=== PATIENT | female | born 1960 | race Caucasian/White ===

== ENCOUNTER 2016-07-09 15:50 | Inpatient (IN) | payer BC, OTHER ==
[~2016-07-09] VITALS: Ht 170.2 cm; Wt 112.7 kg
[~2016-07-09 15:50] MED LIST: ALPR.25T PO; CRS350T PO; CYCL10TA9 PO; DULO60CA6 PO; DZPM2T PO; HYDR1TAB66 PO; HYDR1TAB71 PO; LOPE2CAP PO; NABU750T PO; NABUMETONE PO; OMEP20TA2 PO; ONDA8TAB6 PO
--- OUTSIDE RECORDS SUMMARY | 2016-07-09 16:20 | XMS REPORT | Clinical Summary ---
Author Author augusta shell DO, [place] [address] Phone Unavailable Allergies, Adverse Reactions, Alerts Allergy Name Reaction Description Start Date Severity Status Provider DECADRON Critical Active Angie Velazquez IV COMPAZINE Critical Active Angie Velazquez Conditions or Problems Problem Name Problem Code Onset Date Status Entry Date Provider Comment Standard Description Annotate FIBROMYALGIA 729.1 Active Angie Velazquez UNSPECIFIED MYALGIA AND MYOSITIS INSOMNIA 780.52 Active Angie Velazquez INSOMNIA, UNSPECIFIED MIGRAINE VARIANT 346.20 Active Angie Velazquez VARIANTS OF MIGRAINE, NOT ELSEWHERE CLASSIFIED, WITHOUT MENTION OF INTRACTABLE MIGRAINE WITHOUT MENTION OF STATUS MIGRAINOSUS DEPRESSION 311 Active Angie Velazquez DEPRESSIVE DISORDER, NOT ELSEWHERE CLASSIFIED WEIGHT GAIN, ABNORMAL 783.1 Active Angie Velazquez ABNORMAL WEIGHT GAIN LYMPHEDEMA, RIGHT ARM 457.1 Active Anige Velazquez OTHER NONINFECTIOUS LYMPHEDEMA HEALTH SCREENING V70.0 Active Angie Velazquez ROUTINE GENERAL MEDICAL EXAMINATION AT [facility] Medication List Medication Instructions Start Date Stop Date Generic Name NDC Status Provider Patient Instruction RELAFEN 500 MG TABS 1 po BID NABUMETONE Active Az Wormandrés FLEXERIL 10 MG TABS 1 po at HS CYCLOBENZAPRINE HCL Active Az Morrow CYMBALTA 60 MG CPEP 1 PO daily DULOXETINE HCL 34410363459 Active Angie Velazquez VITAMIN D 2000 UNIT TABS 1 PO Daily CHOLECALCIFEROL 46470913482 Active Angie Velazquez OMEPRAZOLE 20 MG CPDR 1 PO daily in am OMEPRAZOLE 52507516621 Active Angie Velazquez VALIUM 2 MG TAB 1 PO TID prn headache DIAZEPAM 56690457682 Active Az Morrow XANAX 0.25 MG TABS 1 PO BID ALPRAZOLAM 94318334316 Active Elida Chan ASPIRIN 325 MG TAB 1 PO daily ASPIRIN 72265014945 Active Angie Velazquez HYDROCODONE-ACETAMINOPHEN 7.5-325 MG TABS 1 PO BID prn HYDROCODONE- ACETAMINOPHEN 62217222888 Active Angie Egan Velazquez Vital Signs Date Name Value Unit Range Description blood pressure, diastolic 88 mm[Hg] BP longo blood pressure, systolic 132 mm[Hg] BP sys pulse rate E&M 78 /min Heart rate respiratory rate E&M 14 /min Respiratory rate weight E&M 242 [lb_av] Weight Measured blood pressure, diastolic 60 mm[Hg] BP longo blood pressure, systolic 130 mm[Hg] BP sys pulse rate E&M 60 /min Heart rate respiratory rate E&M 14 /min Respiratory rate weight E&M 225 [lb_av] Weight Measured blood pressure, diastolic 90 mm[Hg] BP longo blood pressure, systolic 136 mm[Hg] BP sys pulse rate E&M 60 /min Heart rate respiratory rate E&M 14 /min Respiratory rate temperature E&M 98.6 [degF] Bdy temp weight E&M 232 [lb_av] Weight Measured
[2016-07-09 16:30] VITALS: BP 153/82
[2016-07-09] MEDS ORDERED: FLUT1DIS28 IH (16:55)
[2016-07-09] MEDS ORDERED: HYDR115S2 PO (16:55)
[2016-07-09] MEDS ORDERED: PRD10T PO (16:55)
[2016-07-09] MEDS ORDERED: RT-ALBUINH IH (16:55)
[2016-07-09] MEDS ORDERED: CEFD300C3 PO (16:55)
[2016-07-09] MEDS ORDERED: CETI10TA17 PO (17:05)
[2016-07-09] MEDS ORDERED: FLUT9.9S NS (17:05)
[2016-07-09] MEDS ORDERED: PREN-94 PO (17:05)
[2016-07-09 17:23] LABS: BASOPHILS % (AUTO) 0 % (0-10); EOSINOPHILS % (AUTO) 0 % (0-10); LYMPHOCYTES # (AUTO) 1.7 X 10^3 (1.0-4.0); LYMPHOCYTES % (AUTO) 16 % (12-44); MEAN CORPUSCULAR HEMOGLOBIN 28 PG (25-34); MEAN CORPUSCULAR HGB CONC 33 G/DL (32-36); MEAN CORPUSCULAR VOLUME 87 FL (80-99); MEAN PLATELET VOLUME 9.2 FL (7.4-10.4); MONOCYTES # (AUTO) 0.4 X 10^3 (0.0-1.0); MONOCYTES % (AUTO) 4 % (0-12); NEUTROPHILS # (AUTO) 8.6 X 10^3 (1.8-7.8); NEUTROPHILS % (AUTO) 80 % (42-75); PLATELET COUNT 232 10^3/uL (130-400); RED BLOOD COUNT 5.04 10^6/uL (4.35-5.85); WHITE BLOOD COUNT 10.8 10^3/uL (4.3-11.0)
[2016-07-09 17:41] LABS: ALANINE AMINOTRANSFERASE 34 U/L (0-55); ALBUMIN 4.4 G/DL (3.2-4.5); ANION GAP 11 MMOL/L (5-14); ASPARTATE AMINO TRANSFERASE 25 U/L (5-34); BILIRUBIN,TOTAL 0.3 MG/DL (0.1-1.0); BLOOD UREA NITROGEN 16 MG/DL (7-18); BUN/CREATININE RATIO 22; CARBON DIOXIDE 24 MMOL/L (21-32); CHLORIDE 103 MMOL/L (98-107); CREATININE SERUM 0.72 MG/DL (0.60-1.30); GFR ESTIMATED > 60; GLUCOSE 122 MG/DL (70-105); POTASSIUM 3.9 MMOL/L (3.6-5.0); SODIUM 138 MMOL/L (135-145); TOTAL PROTEIN 7.6 G/DL (6.4-8.2)
[2016-07-09] MEDS: RT-BUDESONIDE NEBS 0.5 MG/2ML (PULMICORT) AMP INH SCH ×2 (18:00→18:01)
[2016-07-09] MEDS: RT-ALBUTEROL/IPRATROPIUM 3 ML (DUONEB) VIAL INH SCH ×2 (18:00→22:18)
--- NOTE | 2016-07-09 18:00 | Diagnostic Imaging Report ---
INDICATION: Coughing, wheezing. FINDINGS: There is some prominence of the perihilar interstitial markings and thickening of the central airways. There is a new finding. This can be seen in viral pneumonitis or reactive airway disease, asthma exacerbation or bronchitis. There was however no alveolar consolidation to suggest a david pneumonia and no effusion or pneumothorax. The lung volumes are symmetric and unremarkable. IMPRESSION: New perihilar interstitial thickening with normal lung volumes. No acute pleural pathology or alveolar infiltrate. Dictated by: Dictated on workstation # [id number]
[2016-07-09] MEDS: LEVOFLOXACIN 750 MG/150 ML IV 150 ML IV SCH (18:55)
[2016-07-09 20:00] VITALS: BP 146/70
[2016-07-09] MEDS ORDERED: CEFEPIME HCL 2 GM (MAXIPIME) VIAL ONE (20:09)
[2016-07-09] MEDS ORDERED: NORMAL SALINE (BAXTER MINI) 50 ML IV ONE (20:11)
[2016-07-09] MEDS: CEFEPIME INJECTION 2,000 MG in NORMAL SALINE (BAXTER MINI) 50 ML IV SCH (20:28)
[2016-07-09] MEDS: methylPREDNISolone 40 MG/ML (Solu-MEDROL) VIAL IV SCH ×2 (20:28→20:35)
[2016-07-09] MEDS: guaiFENesin/CODEINE (ROBITUSSIN AC) 10ML UDC PO PRN (21:06)
[2016-07-09] MEDS: IBUPROFEN TABLET 200 MG TAB PO PRN (21:07)
[2016-07-09 23:55] VITALS: BP 161/77
[2016-07-10] MEDS: fentaNYL INJECTION 100 MCG/2 ML AMP IVP PRN ×3 (00:02→11:35)
[2016-07-10] MEDS: methylPREDNISolone 40 MG/ML (Solu-MEDROL) VIAL IV SCH ×4 (00:54→18:10)
[2016-07-10] MEDS: guaiFENesin/CODEINE (ROBITUSSIN AC) 10ML UDC PO PRN (01:02)
[2016-07-10 01:20] VITALS: BP 149/70
[2016-07-10] MEDS: RT-ALBUTEROL/IPRATROPIUM 3 ML (DUONEB) VIAL INH SCH ×6 (02:05→23:30)
[2016-07-10 04:00] VITALS: BP 141/72
[2016-07-10] MEDS: IBUPROFEN TABLET 200 MG TAB PO PRN (05:20)
[2016-07-10] MEDS: RT-BUDESONIDE NEBS 0.5 MG/2ML (PULMICORT) AMP INH SCH ×2 (06:39→19:08)
[2016-07-10 08:00] VITALS: BP 155/65
[2016-07-10] MEDS ORDERED: NORMAL SALINE (BAXTER MINI) 50 ML IV ONE (09:47)
[2016-07-10] MEDS ORDERED: CEFEPIME HCL 2 GM (MAXIPIME) VIAL ONE (09:47)
[2016-07-10] MEDS: CEFEPIME INJECTION 2,000 MG in NORMAL SALINE (BAXTER MINI) 50 ML IV SCH (10:28)
--- NOTE | 2016-07-10 10:55 | Pulmonary Consultation ---
History of Present Illness History of Present Illness Date of Consultation 07/10/16 10:53 Date of Admission History of Present Illness 56yo with hx of asthma presented to secondary to progressive SOB and wheezing. She failed out pt tx with omnicef and steroids. I am consulted for pulmonary mangemtn. Allergies and Home Medications Allergies Coded Allergies: levofloxacin (Verified Allergy, Intermediate, RASH, 07/10/16) PALPITATIONS dexamethasone (Unverified Allergy, Unknown, PT HAS RECEIVED SOLU-MEDROL, 07/10/16) dexamethasone sod phosphate (Unverified Allergy, Unknown, 03/11/11) prochlorperazine edisylate (Unverified Allergy, Unknown, 03/11/11) prochlorperazine maleate (Unverified Allergy, Unknown, 03/11/11) Home Medications Albuterol Sulfate 8.5 Gm Hfa.aer.ad 2 PUFF IH Q4H PRN PRN SHORTNESS OF BREATH ( Reported) Cefdinir 300 Mg Capsule 7Days 300 MG PO BID (Reported) FILLED 07/07/16 #14 FOR A 7 DAY THERAPY Cetirizine HCl 10 Mg Tablet 10 MG PO HS (Reported) Fluticasone Propionate 9.9 Ml Custer.susp 2 SPRAYS NS BID (Reported) Fluticasone/Salmeterol 1 Each Blst.w.dev 30Days 1 EACH IH BID Prescribed by: HALLIE FRYE on 07/13/16 1024 Hydrocodone/Chlorphen P-Stirex 480 Ml Angie.er.12h 5 ML PO QID PRN PRN COUGH ( Reported) Ipratropium/Albuterol Sulfate 3 Ml Ampul.neb #90 3 ML IH TID Prescribed by: AHLLIE FRYE on 07/13/16 1105 Prednisone 10 Mg Tab PO UD (Reported) FILLED 07/07/16 #42 A 12 DAY TAPER BEGINNING WITH 6 TABS PO ONCE DAILY; DECREASE BY 1 TAB EVERY OTHER DAY UNTIL GONE Vits #90/Iron Fum/FA 1 Each Tablet 1 TAB PO HS (Reported) Past Ddiihze-Azmnrj-Jbegnz Hx Patient Social History Alcohol Use: Denies Use Recreational Drug Use: No Recent Foreign Travel: No Contact w/Someone Who Travel: No Recent Infectious Disease Expo: No Recent Hopitalizations: No Physical Abuse Screen: No Sexual Abuse: No Immunizations Up To Date Tetanus Booster (TDap): Less than 5yrs Date of Pneumonia Vaccine: Apr 25, 2016 Date of Influenza Vaccine: Apr 25, 2016 Seasonal Allergies Seasonal Allergies: Yes Surgeries HX Surgeries: Yes Respiratory Hx Respiratory Disorders: Yes Respiratory Disorders: Asthma, Chronic Bronchitis Cardiovascular Hx Cardiac Disorders: Yes Neurological Hx Neurological Disorders: Yes Reproductive System Hx Reproductive Disorders: Yes (HYSTO) Genitourinary Hx Genitourinary Disorders: No Gastrointestinal Hx Gastrointestinal Disorders: No Musculoskeletal Hx Musculoskeletal Disorders: Yes Musculoskeletal Disorders: Fibromyalgia Endocrine Hx Endocrine Disorders: No Endocrine Disorders: Lupus HEENT HX ENT Disorders: Yes Psychosocial Hx Psychiatric Problems: No Integumentary HX Skin/Integumentary Disorder: No Blood Transfusions Hx Blood Disorders: No Adverse Reaction to a Blood Tr: No Review of Systems Constitutional: : Malaise: Weakness Eyes: No: Conjunctivae inflammation, Eyelid inflammation, Other, Pain, Redness , Vision change ENT: No: Ear discharge, Ear pain, Mouth pain, Mouth swelling, Nose congestion, Nose discharge, Nose pain, Other, Throat pain, Throat swelling Respiratory: : SOB with excertion: Shortness of breath: Wheezing Cardiovascular: : OrthopneaNo: Chest Pain, Palpitations Gastrointestinal: No: Nausea, Vomiting Genitourinary: No Dysuria Neurological: : Weakness Exam Exam Vital Signs Date Time Temp Pulse Resp B/P Pulse Ox O2 Delivery O2 Flow Rate FiO2 07/10/16 10:28 93 Room Air 07/10/16 07:00 82 07/10/16 06:39 92 Room Air 07/10/16 04:00 97.7 75 18 141/72 93 Room Air 07/10/16 02:05 95 Room Air 07/10/16 01:50 Room Air 07/10/16 01:20 98.4 70 17 149/70 92 Room Air 07/10/16 01:00 102 07/09/16 23:55 98.0 90 18 161/77 92 Room Air 07/09/16 22:19 92 Room Air 07/09/16 20:22 95 Room Air 07/09/16 20:00 95 Room Air 07/09/16 20:00 98.8 80 20 146/70 95 Room Air 07/09/16 19:00 87 07/09/16 18:01 93 Room Air 07/09/16 16:30 99.5 90 20 153/82 95 Room Air I & O 07/10/16 07:00 Intake Total 600 ml Balance 600 ml General Appearance: No Apparent Distress WD/WN HEENT: PERRL/EOMI Normal ENT Inspection Pharynx Normal Neck: Normal Inspection Non Tender Supple Respiratory: Chest Non Tender No Accessory Muscle Use No Respiratory Distress Decreased Breath Sounds Wheezing Cardiovascular: Regular Rate, Rhythm No Edema No Gallop Gastrointestinal: normal bowel sounds non tender soft no organomegaly Neurologic/Psychiatric: Alert Oriented x3 Skin: Normal Color Warm/Dry Results Lab Laboratory Tests 07/09/16 17:12 Assessment/Plan Assessment/Plan Dyspnea failed out pt treatment -IV Abx -solumedrol change to 40 IV Q6 obesity Clinical Quality Measures DVT/VTE Risk/Contraindication: Risk Factor Score Per Nursin RFS Level Per Nursing on Admit: 4+=Very High FERNANDO PÉREZ DO Jul 10, 2016 10:55
--- NOTE | 2016-07-10 11:04 | History & Physical-Hospitalist ---
HPI History of Present Illness: HPI/Chief Complaint CC: SOB HPI: This is 56WyoWF pt of mine with Hx of severe URI episodes that trigger asthma episodes that presented to my clinic yesterday as an urgent appointment due to SOB. She was seen in clinic on Wednesday, found to be wheezing, so she was placed on Omnicef and steroids of 60mg daily but she became worse and agreed for admission. Chart Review: CXR reveals no pneumonia but perihilar interstitial thickening CBC and CMP normal magnetic tape winder: Dr. Velazquez informs RN that pt will receive nebulizer prescription. Patient Interview: Pt states that she can breathe better, but is coughing now. Pt states that she is tired. Physical exam reveals improved lung sounds. Pt denies BMs, and has little appetite. Pt does not take Singulair at home. Pt does not have nebulizer at home. Scribed by Vishal Li under the direct supervision of Dr. Velazquez. Source: patient Date Seen 07/10/16 Attending Physician Angie Velazquez DO PCP Angie Velazquez DO Referring Physician Date of Admission Jul 09, 2016 at 16:16 Home Medications & Allergies Home Medications Reviewed patient Home Medication Reconciliation Form Allergies Coded Allergies: dexamethasone (Unverified Allergy, Unknown, PT HAS RECEIVED SOLU-MEDROL, 07/10/16) dexamethasone sod phosphate (Unverified Allergy, Unknown, 03/11/11) prochlorperazine edisylate (Unverified Allergy, Unknown, 03/11/11) prochlorperazine maleate (Unverified Allergy, Unknown, 03/11/11) Past Nqippzk-Yypkap-Mlorzu Hx Patient Social History Marrital Status: 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[employer]) Alcohol Use: Denies Use Recreational Drug Use: No Smoking Status: Never a Smoker Physical Abuse Screen: No Sexual Abuse: No Recent Foreign Travel: No Contact w/other who traveled: No Recent Hopitalizations: No Recent Infectious Disease Expo: No Immunizations Up To Date Tetanus Booster (TDap): Less than 5yrs Date of Pneumonia Vaccine: Apr 25, 2016 Date of Influenza Vaccine: Apr 25, 2016 Seasonal Allergies Seasonal Allergies: Yes Surgeries HX Surgeries: Yes Surgeries: Gallbladder, Tonsillectomy Respiratory Hx Respiratory Disorders: Yes Respiratory Disorders: Asthma Cardiovascular Hx Cardiovascular Disorders: Yes Cardiac Disorders: Chronic Edema/Swelling, High Cholesterol Neurological Hx Neurological Disorders: Yes Neurological Disorders: Headaches /Migraines Reproductive System Hx Reproductive Disorders: Yes (HYSTO) Genitourinary Hx Genitourinary Disorders: No Gastrointestinal Hx Gastrointestinal Disorders: No Musculoskeletal Hx Musculoskeletal Disorders: Yes Musculoskeletal Disorders: Fibromyalgia Endocrine Hx Endocrine Disorders: No Endocrine Disorders: Lupus HEENT HX ENT Disorders: Yes Psychosocial Hx Psychiatric Problems: No Integumentary HX Skin/Integumentary Disorder: No Blood Transfusions Hx Blood Disorders: No Adverse Reaction to a Blood Tr: No Review of Systems Constitutional: see HPI chills dizziness fever malaise weakness EENTM: no symptoms reported Respiratory: cough short of breath wheezing Cardiovascular: no symptoms reported Gastrointestinal: no symptoms reported Genitourinary: no symptoms reported Musculoskeletal: no symptoms reported Skin: no symptoms reported Psychiatric/Neurological: No Symptoms Reported All Other Systems Reviewed Negative Unless Noted: Yes Physical Exam Physical Exam Vital Signs Vital Sign - Last 12Hours 07/09/16 16:30 Temp 99.5 Pulse 90 Resp 20 B/P 153/82 Pulse Ox 95 O2 Delivery Room Air Capillary Refill : General Appearance: No Apparent Distress WD/WN Other (a T) Eyes: Bilateral Eye Normal Inspection, Bilateral Eye PERRL HEENT: PERRL/EOMI Normal ENT Inspection Pharynx Normal Neck: Full Range of Motion Normal Inspection Non Tender Supple Carotid Bruit Respiratory: Chest Non Tender Normal Breath Sounds No Accessory Muscle Use No Respiratory Distress Crackles Decreased Breath Sounds Rales Wheezing Cardiovascular: Regular Rate, Rhythm No Edema No Gallop No JVD No Murmur Normal Peripheral Pulses Gastrointestinal: Normal Bowel Sounds No Organomegaly No Pulsatile Mass Non Tender Soft Back: Normal Inspection No CVA Tenderness No Vertebral Tenderness Extremity: Normal Capillary Refill Normal Inspection Normal Range of Motion Non Tender No Calf Tenderness No Pedal Edema Neurologic/Psychiatric: Alert Oriented x3 No Motor/Sensory Deficits Normal Mood/Affect Skin: Normal Color Warm/Dry Lymphatic: No Adenopathy Results Results/Procedures Lab Laboratory Tests 07/09/16 17:12 Assessment/Plan Admission Diagnosis Assessment: Severe asthma exacerbation due to pneumonitis failed PO antibiotics and steroids Chronic pain syndrome Fibromyalgia Allergic rhinitis Hx of right upper extremity thrombophlebitis following arm injury Assessment and Plan Plan: Consult with Dr. Lang Prescription for nebulizer has been entered for her daughter to apple picker today at [facility] in preparation for discharge over the weekend Empiric antibiotics for pneumonitis on chest x-ray Monitor labs SCD's Reconcile all home meds Clinical Quality Measures DVT/VTE Risk/Contraindication: Risk Factor Score Per Nursin RFS Level Per Nursing on Admit: 4+=Very High ANGIE VELAZQUEZ DO Jul 10, 2016 11:04
[2016-07-10] MEDS: HYDROCODONE/CHLOR 10MG/5 ML (TUSSIONEX SUSP) 5ML UDC PO PRN (11:34)
[2016-07-10 12:00] VITALS: BP 150/68
[2016-07-10 16:00] VITALS: BP 174/69
[2016-07-10] MEDS: LEVOFLOXACIN 750 MG/150 ML IV 150 ML IV SCH (18:11)
[2016-07-10 19:33] VITALS: BP 172/62
[2016-07-10] MEDS ORDERED: diphenhydrAMINE 50 MG/ML INJ (BENADRYL) IVP PRN (19:45)
[2016-07-10] MEDS ORDERED: amLODIPine 5 MG (NORVASC) TAB PO ONE (19:45)
[2016-07-10] MEDS: LORATADINE (CLARITIN) 10 MG TAB PO SCH (20:53)
[2016-07-10] MEDS: FLUTICASONE NASAL SPRAY (FLONASE) 16 GM BTL NS SCH (20:57)
[2016-07-11] VITALS (7 sets, daily range): BP systolic 122–161; BP diastolic 68–83
[2016-07-11] MEDS: methylPREDNISolone 40 MG/ML (Solu-MEDROL) VIAL IV SCH ×3 (00:04→20:33)
[2016-07-11] MEDS: RT-ALBUTEROL/IPRATROPIUM 3 ML (DUONEB) VIAL INH SCH ×6 (02:20→22:30)
[2016-07-11] MEDS: RT-BUDESONIDE NEBS 0.5 MG/2ML (PULMICORT) AMP INH SCH ×2 (06:34→19:11)
[2016-07-11] MEDS: FLUTICASONE NASAL SPRAY (FLONASE) 16 GM BTL NS SCH ×2 (08:34→20:33)
[2016-07-11] MEDS: IBUPROFEN TABLET 200 MG TAB PO PRN (08:36)
--- NOTE | 2016-07-11 12:18 | Progress Note-Hospitalist ---
Progress Note HPI/CC on Admission CC: SOB HPI: This is 56WyoWF pt of mine with Hx of severe URI episodes that trigger asthma episodes that presented to my clinic yesterday as an urgent appointment due to SOB. She was seen in clinic on Wednesday, found to be wheezing, so she was placed on Omnicef and steroids of 60mg daily but she became worse and agreed for admission. Chart Review: CXR reveals no pneumonia but perihilar interstitial thickening CBC and CMP normal research and evaluation analyst: Dr. Velazquez informs RN that pt will receive nebulizer prescription. Patient Interview: Pt states that she can breathe better, but is coughing now. Pt states that she is tired. Physical exam reveals improved lung sounds. Pt denies BMs, and has little appetite. Pt does not take Singulair at home. Pt does not have nebulizer at home. Scribed by Vishal Li under the direct supervision of Dr. Velazquez. Progress Notes/Assess & Plan Date Seen 07/11/16 Admission Dx/Process Assessment: Severe asthma exacerbation due to pneumonitis failed PO antibiotics and steroids Chronic pain syndrome Fibromyalgia Allergic rhinitis Hx of right upper extremity thrombophlebitis following arm injury Diagonsis/Assessment & Plan Patient is doing much better less coughing but did have an allergic reaction to Levaquin so that was placed on her allergy list Overall patient feels better does not have much of an appetite but overall doing well but she is quite sedentary so she will be ambulating in the halls today in preparation for discharge tomorrow Did not waste picker nebulizer machine yet Tolerating all the rest of the medications well Feels like she is retaining fluid so will give Lasix 20 mg IV 1 now and will adjust her steroids to 62.5 MG IV every 12 hours No fever vital signs stable, pleasant, oriented 3, best friend at the bedside Regular rate and rhythm, clear to auscultation bilaterally but decreased in the bases but much better air movement and rales are only noted on end expiratory phase in the bases No edema Assessment: Severe asthma exacerbation due to pneumonitis failed PO antibiotics and steroids Chronic pain syndrome Fibromyalgia Allergic rhinitis Hx of right upper extremity thrombophlebitis following arm injury Acute fluid retention due to steroids Plan: Lasix 20 MG IV 1 now and adjusting steroid dose down Likely discharge tomorrow HALLIE VELAZQUEZ DO Jul 11, 2016 12:18
[2016-07-11] MEDS ORDERED: FUROSEMIDE 40 MG/4 ML INJ (LASIX) IVP NR (12:30)
[2016-07-11] MEDS: CEFDINIR 300 MG (OMNICEF) CAP PO SCH ×2 (13:50→20:33)
[2016-07-11] MEDS: LORATADINE (CLARITIN) 10 MG TAB PO SCH (20:33)
[2016-07-11] MEDS: guaiFENesin/CODEINE (ROBITUSSIN AC) 10ML UDC PO PRN (23:54)
[2016-07-12] MEDS: RT-ALBUTEROL/IPRATROPIUM 3 ML (DUONEB) VIAL INH SCH ×5 (02:00→18:43)
[2016-07-12 03:28] VITALS: BP 147/65
[2016-07-12] MEDS: IBUPROFEN TABLET 200 MG TAB PO PRN ×3 (03:54→21:14)
[2016-07-12] MEDS: guaiFENesin/CODEINE (ROBITUSSIN AC) 10ML UDC PO PRN ×2 (03:55→21:14)
[2016-07-12 06:20] LABS: BASOPHILS % (AUTO) 0 % (0-10); EOSINOPHILS % (AUTO) 0 % (0-10); LYMPHOCYTES # (AUTO) 2.1 X 10^3 (1.0-4.0); LYMPHOCYTES % (AUTO) 14 % (12-44); MEAN CORPUSCULAR HEMOGLOBIN 29 PG (25-34); MEAN CORPUSCULAR HGB CONC 33 G/DL (32-36); MEAN CORPUSCULAR VOLUME 87 FL (80-99); MEAN PLATELET VOLUME 9.6 FL (7.4-10.4); MONOCYTES # (AUTO) 0.9 X 10^3 (0.0-1.0); MONOCYTES % (AUTO) 6 % (0-12); NEUTROPHILS # (AUTO) 11.8 X 10^3 (1.8-7.8); NEUTROPHILS % (AUTO) 80 % (42-75); PLATELET COUNT 228 10^3/uL (130-400); WHITE BLOOD COUNT 14.8 10^3/uL (4.3-11.0)
[2016-07-12 06:42] LABS: ALANINE AMINOTRANSFERASE 28 U/L (0-55); ALBUMIN 3.8 G/DL (3.2-4.5); ANION GAP 11 MMOL/L (5-14); ASPARTATE AMINO TRANSFERASE 19 U/L (5-34); BILIRUBIN,TOTAL 0.4 MG/DL (0.1-1.0); BLOOD UREA NITROGEN 21 MG/DL (7-18); BUN/CREATININE RATIO 27; CALCIUM 8.5 MG/DL (8.5-10.1); CARBON DIOXIDE 23 MMOL/L (21-32); CHLORIDE 103 MMOL/L (98-107); CREATININE SERUM 0.77 MG/DL (0.60-1.30); GFR ESTIMATED > 60; GLUCOSE 177 MG/DL (70-105); POTASSIUM 4.5 MMOL/L (3.6-5.0); SODIUM 137 MMOL/L (135-145); TOTAL PROTEIN 6.1 G/DL (6.4-8.2)
[2016-07-12 08:00] VITALS: BP 130/60
[2016-07-12] MEDS: RT-BUDESONIDE NEBS 0.5 MG/2ML (PULMICORT) AMP INH SCH ×2 (08:02→18:42)
[2016-07-12] MEDS: CEFDINIR 300 MG (OMNICEF) CAP PO SCH ×2 (08:33→21:13)
[2016-07-12] MEDS: methylPREDNISolone 40 MG/ML (Solu-MEDROL) VIAL IV SCH ×2 (08:33→21:13)
[2016-07-12] MEDS: FLUTICASONE NASAL SPRAY (FLONASE) 16 GM BTL NS SCH ×2 (08:34→21:13)
[2016-07-12 11:18] LABS: BAND NEUTROPHILS 0 %; BASOPHILS % (MANUAL) 0 %; EOSINOPHILS % (MANUAL) 0 %; LYMPHOCYTES % (MANUAL) 19 %; NEUTROPHILS % (MANUAL) 78 %
[2016-07-12 12:00] VITALS: BP 148/67
--- NOTE | 2016-07-12 13:10 | Progress Note-Hospitalist ---
Progress Note HPI/CC on Admission CC: SOB HPI: This is 56WyoWF pt of mine with Hx of severe URI episodes that trigger asthma episodes that presented to my clinic yesterday as an urgent appointment due to SOB. She was seen in clinic on Wednesday, found to be wheezing, so she was placed on Omnicef and steroids of 60mg daily but she became worse and agreed for admission. Chart Review: CXR reveals no pneumonia but perihilar interstitial thickening CBC and CMP normal heater room helper: Dr. Velazquez informs RN that pt will receive nebulizer prescription. Patient Interview: Pt states that she can breathe better, but is coughing now. Pt states that she is tired. Physical exam reveals improved lung sounds. Pt denies BMs, and has little appetite. Pt does not take Singulair at home. Pt does not have nebulizer at home. Scribed by Vishal Li under the direct supervision of Dr. Velazquez. Progress Notes/Assess & Plan Date Seen 07/12/16 Admission Dx/Process Assessment: Severe asthma exacerbation due to pneumonitis failed PO antibiotics and steroids Chronic pain syndrome Fibromyalgia Allergic rhinitis Hx of right upper extremity thrombophlebitis following arm injury Diagonsis/Assessment & Plan Patient is doing about the same with more coughing but she attributes that to her air exchange in her lungs. talked about sleep apnea that likely is undiagnosed and that being a contributor factor CT chest will be obtained to further evaluate recurrent upper respiratory illnesses. Ambulating well No fever vital signs stable, pleasant, oriented 3, coughing Regular rate and rhythm, clear to auscultation bilaterally except improved rales all aceves at end-expiratory phase, improved from yesterday No edema Laboratory Tests 07/12/16 06:10 Assessment: Severe asthma exacerbation due to pneumonitis failed PO antibiotics and steroids obtaining CT chest Chronic pain syndrome Fibromyalgia Allergic rhinitis Hx of right upper extremity thrombophlebitis following arm injury Acute fluid retention due to steroids s/p Lasix Likely VANE undx Hyperglycemia due to steroids Plan: CT chest w/IV contrast Needs VANE evaluation Steroids, Abx Difficult case HALLIE VELAZQUEZ DO Jul 12, 2016 13:10
[2016-07-12] MEDS: IOHEXOL 350 MG/ML 100 ML (OMNIPAQUE 350) VIAL IV ONE ×2 (14:02→15:25)
[2016-07-12] MEDS: NS 100 ML (IVPB) BAG IV ONE ×2 (14:02→15:26)
--- NOTE | 2016-07-12 15:43 | Diagnostic Imaging Report ---
PROCEDURE: CT chest with contrast only. TECHNIQUE: Multiple contiguous axial images were obtained through the chest after administration of intravenous contrast. INDICATION: Right-sided chest pain. FINDINGS: There is some discoid atelectasis in the superior segment of the right lower lobe. There is minimal dependent atelectasis at both lung bases. There is no hilar or mediastinal lymphadenopathy. There are no pulmonary emboli. IMPRESSION: Minimal atelectasis. No acute abnormality is seen in the chest. Dictated by: Dictated on workstation # [id number]
[2016-07-12 16:00] VITALS: BP 152/73
[2016-07-12] MEDS ORDERED: RT-ALBUTEROL/IPRATROPIUM 3 ML (DUONEB) VIAL INH PRN (19:00)
[2016-07-12 20:00] VITALS: BP 173/69
[2016-07-12] MEDS: LORATADINE (CLARITIN) 10 MG TAB PO SCH (21:13)
[2016-07-12 23:35] VITALS: BP 170/77
[2016-07-13 04:00] VITALS: BP 143/70
[2016-07-13] MEDS: HYDROCODONE/CHLOR 10MG/5 ML (TUSSIONEX SUSP) 5ML UDC PO PRN (05:31)
[2016-07-13] MEDS: RT-BUDESONIDE NEBS 0.5 MG/2ML (PULMICORT) AMP INH SCH (07:53)
[2016-07-13] MEDS: RT-ALBUTEROL/IPRATROPIUM 3 ML (DUONEB) VIAL INH SCH ×2 (07:53→11:24)
[2016-07-13 08:00] VITALS: BP 161/72
[2016-07-13 08:15] LABS: BASOPHILS % (AUTO) 0 % (0-10); EOSINOPHILS % (AUTO) 0 % (0-10); LYMPHOCYTES # (AUTO) 2.2 X 10^3 (1.0-4.0); LYMPHOCYTES % (AUTO) 14 % (12-44); MEAN CORPUSCULAR HEMOGLOBIN 29 PG (25-34); MEAN CORPUSCULAR HGB CONC 33 G/DL (32-36); MEAN CORPUSCULAR VOLUME 87 FL (80-99); MEAN PLATELET VOLUME 9.4 FL (7.4-10.4); MONOCYTES # (AUTO) 0.8 X 10^3 (0.0-1.0); MONOCYTES % (AUTO) 5 % (0-12); NEUTROPHILS # (AUTO) 12.9 X 10^3 (1.8-7.8); NEUTROPHILS % (AUTO) 81 % (42-75); PLATELET COUNT 218 10^3/uL (130-400); RED BLOOD COUNT 4.76 10^6/uL (4.35-5.85); RED CELL DISTRIBUTION WIDTH 12.8 % (10.0-14.5); WHITE BLOOD COUNT 15.9 10^3/uL (4.3-11.0)
[2016-07-13] MEDS: IBUPROFEN TABLET 200 MG TAB PO PRN (08:25)
[2016-07-13] MEDS: methylPREDNISolone 40 MG/ML (Solu-MEDROL) VIAL IV SCH (08:25)
[2016-07-13] MEDS: CEFDINIR 300 MG (OMNICEF) CAP PO SCH (08:25)
[2016-07-13] MEDS: FLUTICASONE NASAL SPRAY (FLONASE) 16 GM BTL NS SCH (08:28)
[2016-07-13 08:44] LABS: ALANINE AMINOTRANSFERASE 32 U/L (0-55); ALBUMIN 3.8 G/DL (3.2-4.5); ANION GAP 10 MMOL/L (5-14); ASPARTATE AMINO TRANSFERASE 18 U/L (5-34); BILIRUBIN,TOTAL 0.4 MG/DL (0.1-1.0); BLOOD UREA NITROGEN 19 MG/DL (7-18); BUN/CREATININE RATIO 27; CALCIUM 8.7 MG/DL (8.5-10.1); CARBON DIOXIDE 24 MMOL/L (21-32); CHLORIDE 103 MMOL/L (98-107); GFR ESTIMATED > 60; GLUCOSE 169 MG/DL (70-105); POTASSIUM 4.5 MMOL/L (3.6-5.0); SODIUM 137 MMOL/L (135-145); TOTAL PROTEIN 6.3 G/DL (6.4-8.2)
--- NOTE | 2016-07-13 09:27 | Pulmonary Progress Note ---
Subjective Subjective/Events-last exam No complications noted./ Exam Exam Vital Signs Date Time Temp Pulse Resp B/P Pulse Ox O2 Delivery O2 Flow Rate FiO2 07/13/16 07:53 93 Room Air 07/13/16 04:00 97.0 74 16 143/70 95 Room Air 07/12/16 23:35 98.3 77 16 170/77 95 Room Air 07/12/16 20:00 Room Air 07/12/16 20:00 97.2 90 18 173/69 94 Room Air 07/12/16 18:43 93 Room Air 07/12/16 16:00 97.9 93 16 152/73 94 Room Air 07/12/16 14:59 93 Room Air 07/12/16 12:00 97.8 85 22 148/67 94 Room Air 07/12/16 10:55 93 Room Air I & O 07/13/16 07:00 Intake Total 2140 ml Output Total 2250 ml Balance -110 ml General Appearance: No Apparent Distress WD/WN Other (a T) HEENT: PERRL/EOMI Normal ENT Inspection Pharynx Normal Neck: Full Range of Motion Normal Inspection Non Tender Supple Carotid Bruit Respiratory: Chest Non Tender Normal Breath Sounds No Accessory Muscle Use No Respiratory Distress Crackles Decreased Breath Sounds Rales Wheezing Cardiovascular: Regular Rate, Rhythm No Edema No Gallop No JVD No Murmur Normal Peripheral Pulses Extremity: Normal Capillary Refill Normal Inspection Normal Range of Motion Non Tender No Calf Tenderness No Pedal Edema Neurologic/Psychiatric: Alert Oriented x3 No Motor/Sensory Deficits Normal Mood/Affect Skin: Normal Color Warm/Dry Lymphatic: No Adenopathy Results Lab Laboratory Tests 07/12/16 06:10 07/13/16 08:10 Assessment/Plan Assessment/Plan Dyspnea failed out pt treatment -IV Abx -solumedrol change to 40 IV Q6 obesity Clinical Quality Measures DVT/VTE Risk/Contraindication: Risk Factor Score Per Nursin RFS Level Per Nursing on Admit: 4+=Very High FERNANDO PÉREZ DO Jul 13, 2016 09:27
[2016-07-13] MEDS ORDERED: FLUT1DIS27 IH (10:24)
--- NOTE | 2016-07-13 10:26 | Discharge Instructions ---
Discharge Instructions Discharge Medications New, Converted or Re-Newed RX: Other New Medications: Fluticasone/Salmeterol (Advair 500-50 Diskus) 1 Each Blst.w.dev 1 EACH IH BID Days 30 EA Continued Medications: Albuterol Sulfate (Proair Hfa) 8.5 Gm Hfa.aer.ad 2 PUFF IH Q4H PRN SHORTNESS OF BREATH INH Cefdinir (Cefdinir) 300 Mg Capsule 300 MG PO BID FILLED 07/07/16 #14 FOR A 7 DAY THERAPY Days 7 CAP Cetirizine HCl (Cetirizine HCl) 10 Mg Tablet 10 MG PO HS TAB Fluticasone Propionate (Flonase Allergy Relief) 9.9 Ml Olar.susp 2 SPRAYS NS BID SPRAY Hydrocodone/Chlorphen P-Stirex (Tussionex Pennkinetic Susp) 480 Ml Angie.er.12h 5 ML PO QID PRN COUGH ML Prednisone (Prednisone) 10 Mg Tab PO UD FILLED 07/07/16 #42 A 12 DAY TAPER BEGINNING WITH 6 TABS PO ONCE DAILY ; DECREASE BY 1 TAB EVERY OTHER DAY UNTIL GONE TAB Vits #90/Iron Fum/FA ( Formula Tablet) 1 Each Tablet 1 TAB PO HS TAB Discontinued Medications: Fluticasone/Salmeterol (Advair 100-50 Diskus) 1 Each Blst.w.dev 1 PUFF IH BID EA Patient Instructions Goal/Follow Up Appt: Dr Velazquez , 07/16/16 Patient Instructions: Resume antibiotics and steroids and take the Advair sample that Dr Lang will give her prior to DC Activity & Diet Discharge Diet: No Restrictions Activity as Tolerated: Yes HALLIE VELAZQUEZ DO Jul 13, 2016 10:26
--- NOTE | 2016-07-13 10:33 | Discharge Summary-Hospitalist ---
Diagnosis/Chief Complaint Date of Admission Jul 09, 2016 at 16:16 Date of Discharge Discharge Date: Jul 13, 2016 Admission Diagnosis Assessment: Severe asthma exacerbation due to pneumonitis failed PO antibiotics and steroids Chronic pain syndrome Fibromyalgia Allergic rhinitis Hx of right upper extremity thrombophlebitis following arm injury Discharge Diagnosis Assessment: Severe asthma exacerbation due to pneumonitis failed PO antibiotics and steroids obtained CT chest that revealed ATX only Chronic pain syndrome Fibromyalgia Allergic rhinitis Hx of right upper extremity thrombophlebitis following arm injury Acute fluid retention due to steroids s/p Lasix Likely VANE undx Hyperglycemia due to steroids Patient is doing about the same with more coughing but she attributes that to her air exchange in her lungs. talked about sleep apnea that likely is undiagnosed and that being a contributor factor CT chest will be obtained to further evaluate recurrent upper respiratory illnesses. Ambulating well No fever vital signs stable, pleasant, oriented 3, coughing Regular rate and rhythm, clear to auscultation bilaterally except improved rales all aceves at end-expiratory phase, improved from yesterday No edema Laboratory Tests 07/12/16 06:10 Assessment: Severe asthma exacerbation due to pneumonitis failed PO antibiotics and steroids obtaining CT chest Chronic pain syndrome Fibromyalgia Allergic rhinitis Hx of right upper extremity thrombophlebitis following arm injury Acute fluid retention due to steroids s/p Lasix Likely VANE undx Hyperglycemia due to steroids Plan: CT chest w/IV contrast Needs VANE evaluation Steroids, Abx Difficult case Reason Hospital Visit/Course CC: SOB HPI: This is [id number] pt of mine with Hx of severe URI episodes that trigger asthma episodes that presented to my clinic yesterday as an urgent appointment due to SOB. She was seen in clinic on Wednesday, found to be wheezing, so she was placed on Omnicef and steroids of 60mg daily but she became worse and agreed for admission. Chart Review: CXR reveals no pneumonia but perihilar interstitial thickening CBC and CMP normal chief communications officer: Dr. Frye informs RN that pt will receive nebulizer prescription. Patient Interview: Pt states that she can breathe better, but is coughing now. Pt states that she is tired. Physical exam reveals improved lung sounds. Pt denies BMs, and has little appetite. Pt does not take Singulair at home. Pt does not have nebulizer at home. Scribed by Vishal Li under the direct supervision of Dr. Frye. Note from 07/13/16: Patient feels much better. Ready for DC. VANE sleep study will be initiated per Dr Lang and he will provide a ICS inhaler prior to DC since Advair was still pending insurance approval. Updated her on the CT chest findings. Ambulating well. AFVSS, Pleasant, O x 3 RRR, CTAB except mild wheezing LUNA No edema Hospital course: patient had a lengthy hospital course. Admitted due to continued wheezing and hypoxia from asthma and pneumonitis. IV abx initiated empirically along with steroids. CT chest obtained revealing ATX when she was having more difficulty with coughing and wheezing. Dr Lang saw her in consultation and was appreciated. At day of DC patient's wheezing had improved and was ready for DC and ambulating well and had a BM so will follow up in my office on and obtain sleep study from Dr Lang. Discharge Summary Discharge Physical Examination Allergies: Coded Allergies: levofloxacin (Verified Allergy, Intermediate, RASH, 07/10/16) PALPITATIONS dexamethasone (Unverified Allergy, Unknown, PT HAS RECEIVED SOLU-MEDROL, 07/10/16) dexamethasone sod phosphate (Unverified Allergy, Unknown, 03/11/11) prochlorperazine edisylate (Unverified Allergy, Unknown, 03/11/11) prochlorperazine maleate (Unverified Allergy, Unknown, 03/11/11) Vitals & I&Os Vital Signs Date Time Temp Pulse Resp B/P Pulse Ox O2 Delivery O2 Flow Rate FiO2 07/13/16 08:00 98.7 71 22 161/72 92 Room Air Hospital Course Labs (last 24 hrs) Laboratory Tests 07/13/16 08:10: Alanine Aminotransferase (ALT/SGPT) 32, Albumin 3.8, Alkaline Phosphatase 74, Anion Gap 10, Aspartate Amino Transf (AST/SGOT) 18, BUN/Creatinine Ratio 27, Basophils # (Auto) 0.0, Basophils (%) (Auto) 0, Blood Urea Nitrogen 19H, Calcium Level 8.7, Carbon Dioxide Level 24, Chloride Level 103, Creatinine 0.70 , Eosinophils # (Auto) 0.0, Eosinophils (%) (Auto) 0, Estimat Glomerular Filtration Rate > 60, Glucose Level 169H, Hematocrit 41, Hemoglobin 13.7, Lymphocytes # (Auto) 2.2, Lymphocytes (%) (Auto) 14, Mean Corpuscular Hemoglobin 29, Mean Corpuscular Hemoglobin Concent 33, Mean Corpuscular Volume 87, Mean Platelet Volume 9.4, Monocytes # (Auto) 0.8, Monocytes (%) (Auto) 5, Neutrophils # (Auto) 12.9H, Neutrophils (%) (Auto) 81H, Platelet Count 218, Potassium Level 4.5, Red Blood Count 4.76, Red Cell Distribution Width 12.8, Sodium Level 137, Total Bilirubin 0.4, Total Protein 6.3L, White Blood Count 15.9H Microbiology 07/09/16 Blood Culture - Preliminary, Resulted No growth Pending Labs Laboratory Tests 07/13/16 08:10: Alanine Aminotransferase (ALT/SGPT) 32, Albumin 3.8, Alkaline Phosphatase 74, Anion Gap 10, Aspartate Amino Transf (AST/SGOT) 18, BUN/Creatinine Ratio 27, Basophils # (Auto) 0.0, Basophils (%) (Auto) 0, Blood Urea Nitrogen 19, Calcium Level 8.7, Carbon Dioxide Level 24, Chloride Level 103, Creatinine 0.70, Eosinophils # (Auto) 0.0, Eosinophils (%) (Auto) 0, Estimat Glomerular Filtration Rate > 60, Glucose Level 169, Hematocrit 41, Hemoglobin 13.7, Lymphocytes # (Auto) 2.2, Lymphocytes (%) (Auto) 14, Mean Corpuscular Hemoglobin 29, Mean Corpuscular Hemoglobin Concent 33, Mean Corpuscular Volume 87, Mean Platelet Volume 9.4, Monocytes # (Auto) 0.8, Monocytes (%) (Auto) 5, Neutrophils # (Auto) 12.9, Neutrophils (%) (Auto) 81, Platelet Count 218, Potassium Level 4.5, Red Blood Count 4.76, Red Cell Distribution Width 12.8, Sodium Level 137, Total Bilirubin 0.4, Total Protein 6.3, White Blood Count 15.9 Discharge Home Medications: Active Scripts Active Advair 500-50 Diskus (Fluticasone/Salmeterol) 1 Each Blst.w.dev 1 Each IH BID 30 Days Reported Flonase Allergy Relief (Fluticasone Propionate) 9.9 Ml [place].susp 2 Sprays NS BID Cetirizine HCl 10 Mg Tablet 10 Mg PO HS Formula Tablet ( Vits #90/Iron Fum/FA) 1 Each Tablet 1 Tab PO HS Advair 100-50 Diskus (Fluticasone/Salmeterol) 1 Each Blst.w.dev 1 Puff IH BID Proair Hfa (Albuterol Sulfate) 8.5 Gm Hfa.aer.ad 2 Puff IH Q4H PRN Prednisone 10 Mg Tab PO UD FILLED 07/07/16 #42 A 12 DAY TAPER BEGINNING WITH 6 TABS PO ONCE DAILY; DECREASE BY 1 TAB EVERY OTHER DAY UNTIL GONE Cefdinir 300 Mg Capsule 300 Mg PO BID 7 Days FILLED 07/07/16 #14 FOR A 7 DAY THERAPY Tussionex Pennkinetic Susp (Hydrocodone/Chlorphen P-Stirex) 480 Ml Angie.er.12h 5 Ml PO QID PRN Instructions to patient/family Please see electonic discharge instructions given to patient. Clinical Quality Measures DVT/VTE Risk/Contraindication: Risk Factor Score Per Nursin RFS Level Per Nursing on Admit: 4+=Very High HALLIE FRYE DO Jul 13, 2016 10:32
[2016-07-13] MEDS ORDERED: IPRA3AMP IH (11:05)
[2016-07-13 12:15] VITALS: BP 138/88
--- NOTE | 2016-07-15 08:41 | Physician Query-General Query ---
Physician Query-General Query to Physician: The DS gives a diagnosis of severe asthma exacerbation d/t pneumonitis failed po antibiotic and steroids. There is also documentation in the record that states CXR reveals no pneumonia but perihilar interstitial thickening. 1.Please clarify whether or not the patient had pneumonia. 2.If patient does have pneumonia, which condition is most responsible for inpatient admission after study the severe asthma exacerbation or the pneumonia? PHYSICIAN RESPONSE: Based on the clinical findings in the record, please respond to the query above on this document as an addendum. Possible, probable, or questionable diagnosis can be coded for INPATIENTS ONLY. Physician Response: Physician Response Atypical pneumonia If you have questions please contact: Bottle Labeler: Gerard Ext: [phone] Thank you for your time and cooperation. Clinical Sales Consulting Director/Bottle Labeler This is a permanent part of the medical record GERARD VASQUEZ Jul 15, 2016 08:41 HALLIE FRYE DO Jul 17, 2016 08:14
[2016-07-16] MEDS ORDERED: LIDOCAINE/EPI 1%-1:100,000 (XYLOCAINE) 20ML ONE (07:38)
[2016-07-16] MEDS ORDERED: COCAINE HCL 4% 2 ML SYR ONE (07:38)
[2016-07-16] MEDS ORDERED: PHENYLEPHRINE 0.5% NASAL SPR (NEO-SYNEPHRINE) REG ONE (07:38)
== END 2016-07-13 12:15 | disposition home or self-care (01) | DRG 202 ==
LOC: ICU 16:16 → 4TH 07-10 01:19
PROVIDERS: ADMIT Internal Medicine; ATTEND Internal Medicine
DX: J45.51 Severe persistent asthma with (acute) exacerbation (principal); J18.9 Pneumonia, unspecified organism; M79.7 Fibromyalgia; R60.9 Edema, unspecified; R73.9 Hyperglycemia, unspecified; T38.0X5A Adverse effect of glucocorticoids and synthetic analogues, initial encounter; E66.9 Obesity, unspecified; Z68.39 Body mass index [BMI] 39.0-39.9, adult; G89.4 Chronic pain syndrome; G47.33 Obstructive sleep apnea (adult) (pediatric)
CPT/HCPCS: 36415; 71020; 71260; 80053; 83605; 85007; 85025; 85027; 87040; 93005; 94640; 94664; 94760

== ENCOUNTER 2018-08-08 15:49 | Inpatient (IN) | payer BC, OTHER | END 2018-08-11 13:36 | disposition other institution (70) | LOC: 4TH 15:49 | DX: J45.42 Moderate persistent asthma with status asthmaticus (principal); J20.9 Acute bronchitis, unspecified; J06.9 Acute upper respiratory infection, unspecified; R50.9 Fever, unspecified; R05 Cough; G47.33 Obstructive sleep apnea (adult) (pediatric); E66.9 Obesity, unspecified; E78.00 Pure hypercholesterolemia, unspecified; R60.0 Localized edema; G43.909 Migraine, unspecified, not intractable, without status migrainosus; M79.7 Fibromyalgia; M32.9 Systemic lupus erythematosus, unspecified; Z68.35 Body mass index [BMI] 35.0-35.9, adult; Z86.718 Personal history of other venous thrombosis and embolism ==

== ENCOUNTER → 2018-09-01 | Outpatient (CLI) | payer BC ==
[~2018-09-01] MED LIST changes: +ALBU2.5V4 NEB; +AMOX-358 PO; +BENZ100C18 PO; +BUDE10.2 INH; +CEFD300C3 PO; +CETI10TA17 PO; +CETI10TA20 PO; +DULO30CA48 PO; +FLUT16SP22 NS; +FLUT1DIS27 IH; +FLUT1DIS28 IH; +FLUT9.9S NS; +GABA-488 PO; +Guaifenesin/Codeine PO; +HYDR115S2 PO; +HYDR473S34 PO; +IPRA3AMP31 IH; +LACT1CAP7 PO; +MONT10TA24 PO; +PRD10T PO; +PRED10TA22 PO; +PREN-94 PO; +PSEU30TA18 PO; +RT-ALBUINH IH; +RT-ALBUINH INH
[2018-09-01 17:00] LABS: HEMOGLOBIN 11.4 G/DL (11.5-16.0); MEAN PLATELET VOLUME 9.2 FL (7.4-10.4); RED CELL DISTRIBUTION WIDTH 13.5 % (10.0-14.5); WHITE BLOOD COUNT 7.3 10^3/uL (4.3-11.0)
[2018-09-01 17:32] LABS: ALANINE AMINOTRANSFERASE 33 U/L (0-55); ALBUMIN 4.1 GM/DL (3.2-4.5); ALKALINE PHOSPHATASE 73 U/L (40-136); BILIRUBIN,TOTAL 0.8 MG/DL (0.1-1.0); BUN/CREATININE RATIO 13; CALCIUM 9.4 MG/DL (8.5-10.1); CARBON DIOXIDE 23 MMOL/L (21-32); CHLORIDE 102 MMOL/L (98-107); CREATININE SERUM 0.78 MG/DL (0.60-1.30); GFR ESTIMATED > 60; GLUCOSE 69 MG/DL (70-105); POTASSIUM 3.9 MMOL/L (3.6-5.0); SODIUM 139 MMOL/L (135-145)
--- NOTE | 2018-09-01 19:09 | Diagnostic Imaging Report ---
INDICATION: Cough and chest pain. EXAMINATION: Portable chest at 4:17 p.m. FINDINGS: There is some left basilar infiltrate and/or atelectasis. Right lung is clear. There may be a tiny left effusion. IMPRESSION: Left basilar infiltrate and/or atelectasis with small left effusion. These findings are new since study done on 08/08/2018. Dictated by: Dictated on workstation # [id number]
== END ==
LOC: RAD 16:05
PROVIDERS: ATTEND Internal Medicine
DX: J90 Pleural effusion, not elsewhere classified (principal)
CPT/HCPCS: 36415; 71045; 80053; 84484; 85027; 85652; 86141; 86738; 87040; 87804

== ENCOUNTER 2020-10-05 21:46 | Emergency (ER) | payer BC ==
[~2020-10-05] VITALS: Ht 170 cm; Wt 100.0 kg
[~2020-10-05 21:46] MED LIST changes: -CETI10TA20 PO; +CETI10TA49 PO; -DULO30CA48 PO; +DULO30CA49 PO; -HYDR473S34 PO; +HYDR473S61 PO; -MONT10TA24 PO; +MONT10TA32 PO
[2020-10-05] MEDS ORDERED: ONDANSETRON 4 MG (ZOFRAN) ORAL DISSOLVE TAB PO ONE (22:15)
[2020-10-05] MEDS ORDERED: RX-HYDROCODONE/APAP 5/325 MG #4 TAB PK PO PRN (22:15)
[2020-10-05] MEDS ORDERED: AUGMENTIN 875 MG TAB (AMOXICILLIN/CLAVULANATE) PO SCH (22:15)
--- NOTE | 2020-10-05 22:24 | ED EENT ---
History of Present Illness General Chief Complaint: Ear Problems Stated Complaint: L EAR PAIN/BLEEDING Nursing Triage Note: Patient states left ear pain since wednesday that has become progressively worse rating at an 8/10. Patient states she has been experiencing pain and tonight noticed bleeding. She states continual poping and decreased ability to hear. Source: family Exam Limitations: no limitations History of Present Illness Date Seen by Provider: Oct 05, 2020 Time Seen by Provider: 22:19 Timing/Duration: gradual Severity: moderate Location: ear (L) Prearrival Treatment: over the counter meds Associated Symptoms: denies symptoms Allergies and Home Medications Allergies Coded Allergies: levofloxacin (Verified Allergy, Intermediate, RASH, 07/10/16) PALPITATIONS dexamethasone (Unverified Allergy, Unknown, PT HAS RECEIVED SOLU-MEDROL, 07/10/16) dexamethasone sod phosphate (Unverified Allergy, Unknown, 03/11/11) prochlorperazine edisylate (Unverified Allergy, Unknown, 03/11/11) prochlorperazine maleate (Unverified Allergy, Unknown, 03/11/11) Home Medications Albuterol Sulfate 2.5 Mg/3 Ml Vial.neb, 2.5 MG NEB Q6H PRN for SHORTNESS OF BREATH, (Reported) Albuterol Sulfate 1 Puff Puff, 2 PUFF INH Q6H PRN for SHORTNESS OF BREATH, (Reported) Amoxicillin/Potassium Clav 1 Each Tablet, 1 EACH PO BID Prescribed by: HALLIE FRYE on 08/11/18 100 Benzonatate 100 Mg Capsule, 200 MG PO TID Prescribed by: HALLIE FRYE on 08/11/18 1001 Budesonide/Formoterol Fumarate 10.2 Gm Hfa.aer.ad, 2 PUFF INH BID, (Reported) Cetirizine HCl 10 Mg Tablet, 10 MG PO DAILY Prescribed by: HALLIE FRYE on 08/11/18 100 Duloxetine HCl 30 Mg Capsule.dr, 30 MG PO HS, (Reported) Fluticasone Propionate 16 Gm [place].susp, 2 SPRAYS NS DAILY, (Reported) Gabapentin 300 Mg Capsule, 300 MG PO TID, (Reported) Hydrocodone/Chlorphen P-Stirex 473 Ml Angie.er.12h, 5 ML PO Q12H PRN for COUGH, (Reported) Hydrocodone/Chlorphen P-Stirex 473 Ml Angie.er.12h, 5 ML PO Q12H Prescribed by: HALLIE FRYE on 08/11/18 1001 Lactobacillus Acidophilus/Pect 1 Each Capsule, 2 EACH PO TIDWM Prescribed by: HALLIE FRYE on 08/11/18 1001 Montelukast Sodium 10 Mg Tablet, 10 MG PO HS, (Reported) Prednisone 10 Mg Tab.ds.pk, 10 MG PO DAILY Take 6 tabs(60mg)daily,decrease by 1 tab(10MG)daily. Prescribed by: HALLIE FRYE on 08/11/18 100 Pseudoephedrine HCl 30 Mg Tablet, 30 MG PO Q6H PRN for CONGESTION, (Reported) [Guaifenesin/Codeine] 10 ML SYRP, 10 ML PO Q4H PRN for COUGH Prescribed by: HALLIE FRYE on 08/11/18 1001 Patient Home Medication List Home Medication List Reviewed: Yes Review of Systems Review of Systems Constitutional: see HPI Eyes: No Symptoms Reported Ears: See HPI, Pain Nose: no symptoms reported Mouth: no symptoms reported Throat: no symptoms reported Respiratory: no symptoms reported Cardiovascular: no symptoms reported Musculoskeletal: no symptoms reported Skin: no symptoms reported Neurological: No Symptoms Reported Past Clbpgtg-[id number]-Ascipk Hx Patient Social History Alcohol Use: Denies Use Smoking Status: Never a Smoker Recent Infectious Disease Expo: No Recent Hopitalizations: No Immunizations Up To Date Tetanus Booster (TDap): Less than 5yrs Date of Pneumonia Vaccine: Apr 25, 2016 Date of Influenza Vaccine: Apr 25, 2018 Seasonal Allergies Seasonal Allergies: Yes Past Medical History Surgeries: Yes Gallbladder, Hysterectomy Respiratory: Yes Asthma, Chronic Bronchitis Currently Using CPAP: No Currently Using BIPAP: No Cardiac: Yes Chronic Edema/Swelling, Deep Vein Thrombosis, High Cholesterol Neurological: Yes Headaches /Migraines Reproductive Disorders: Yes (HYSTO) Gastrointestinal: No Musculoskeletal: Yes Fibromyalgia Endocrine: No Lupus Psychosocial: No Integumentary: No Blood Disorders: No Adverse Reaction/Blood Tranf: No Family Medical History No Pertinent Family Hx Physical Exam Vital Signs Vital Signs - First Documented 10/05/20 21:57 Pulse 78 Resp 14 B/P (MAP) 177/94 (121) Pulse Ox 98 O2 Delivery Room Air Height, Weight, BMI Height: 5'7.00" Weight: 225lbs. 0.0oz. 102.981645wh; 34.00 BMI Method: General Appearance: WD/WN, no apparent distress Eyes: bilateral eye normal inspection, bilateral eye PERRL, bilateral eye EOMI Ears: right ear TM normal; bilateral ear auricle normal Mouth/Throat: normal mouth inspection, pharynx normal Neck: lymphadenopathy (R) Respiratory: normal breath sounds, no respiratory distress Gastrointestinal: normal bowel sounds, non tender, soft Neurologic/Psychiatric: alert, normal mood/affect Skin: normal color, warm/dry Progress/Results/Core Measures Results/Orders My Orders Orders - SOPHIA RETANA APRN Rx-Hydrocodone/Apap 5-325 Mg (Rx-Vicodin (10/05/20 22:15) Neomy/Poly/Hc Otic Suspension (Cortispor (10/06/20 09:00) Amoxicillin/Clavulanate Tablet (Augmenti (10/05/20 22:15) Ondansetron Oral Dissolve Tab (Zofran (10/05/20 22:15) Vital Signs/I&O 10/05/20 21:57 Pulse 78 Resp 14 B/P (MAP) 177/94 (121) Pulse Ox 98 O2 Delivery Room Air Blood Pressure Mean: 121 Departure Impression Primary Impression: Otitis externa Qualified Codes: H60.502 - Unspecified acute noninfective otitis externa, left ear Disposition: 01 HOME, SELF-CARE Condition: Stable Departure-Patient Inst. Decision time for Depature: 22:21 Referrals: HALLIE FRYE DO (PCP/Family) Primary Care Physician Patient Instructions: Outer Ear Infection (DC) Add. Discharge Instructions: 1. 4 drops of the antibiotic eardrops 3 times a day. Do this for 5 to 7 days. Oral antibiotics as well. Follow-up with Dr. Frye next week. All discharge instructions reviewed with patient and/or family. Voiced understanding. Scripts Hydrocodone/Acetaminophen (Hydrocodone-Acetamin 5-325 mg) 1 Each Tablet 1 TAB PO Q4H PRN for PAIN-MODERATE (5-7), #10 TAB Prov: SOPHIA RETANA APRN 10/05/20 Amoxicillin/Potassium Clav (Augmentin 875-125 Tablet) 1 Each Tablet 1 EACH PO BID, #14 TAB 0 Refills Prov: SOPHIA RETANA APRN 3/27/21 Ondansetron (Ondansetron Odt) 4 Mg Tab.rapdis 4 MG PO Q4H PRN for NAUSEA/VOMITING, #10 TAB Prov: SOPHIA RETANA APRN 10/05/20 SOPHIA RETANA APRN Oct 05, 2020 22:24
[2020-10-05] MEDS ORDERED: AMOX-358 PO (22:25)
[2020-10-05] MEDS ORDERED: ACHD5005 PO (22:25)
[2020-10-05] MEDS ORDERED: ONDA4TAB11 PO (22:25)
[2020-10-05] MEDS ORDERED: NEOMY/POLYM/HC (CORTISPORIN) 10 ML BTL ONE (22:30)
[2020-10-05 22:45] VITALS: BP 177/94
[2020-10-06] MEDS ORDERED: NEOMY/POLYM/HC (CORTISPORIN) 10 ML BTL OT SCH (09:00)
== END 2020-10-05 22:48 | disposition home or self-care (01) ==
LOC: EDUNIT# 21:46 → ER 21:47
DX: H60.92 Unspecified otitis externa, left ear (principal); I10 Essential (primary) hypertension; J45.909 Unspecified asthma, uncomplicated; Z88.1 Allergy status to other antibiotic agents; Z88.8 Allergy status to other drugs, medicaments and biological substances; Z79.52 Long term (current) use of systemic steroids
CPT/HCPCS: 99283